=== PATIENT | male | born 1965 | race Caucasian/White ===

== ENCOUNTER 2025-04-11 14:11 | Emergency (ER) | payer SELFPAY ==
[2025-04-11 14:14] VITALS: BP 151/92; PULSE 67; RESP 18; TEMP 36.9; O2SAT 99; BMI 27.3
--- NOTE | 2025-04-11 14:28 | VDLE_ITS ---
Reason For Study Reason For Study: Right leg swelling, hx DVT RIGHT LEFT CFV is compressible, spontaneous, phasic, competent CFV is compressible, spontaneous, phasic, competent, and demonstrates normal augmentation. and demonstrates normal augmentation. FV is partially compressible throughout with bright intraluminal echoes consistent with Chronic DVT. Normal venous flow. PopV is partially compressible with bright intraluminal echoes consistent with Chronic DVT. Normal venous flow. T/P Trunk is partially compressible with bright intraluminal echoes consistent with Chronic DVT. PTV is compressible. RT PerV is compressible. Procedure This is a venous duplex using B-mode, color flow and spectral Doppler. Exam performed portable in ED. A preliminary report was called and/or faxed to Dr. Archer. VL/Venous Duplex US, Unilateral Interpretation Summary Chronic deep vein thrombosis noted in the right femoral vein, popliteal vein, t ibioperoneal trunk vein. Ordering Physician: Ethan Archer Performed By: Thania White RVT
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
[2025-04-11 14:52] LABS: Absolute Lymphocyte Count 1.38 X10^3/uL (0.83-4.51); Absolute Neutrophil Count 6.9 X10^3/uL (2.0-7.7); Basophil# 0.06 X10^3/uL; Basophil% 0.6 % (0-1); Eosinophil# 0.14 X10^3/uL; Eosinophils% 1.5 % (0-5); Hematocrit 37.9 % (40-54); Hemoglobin 11.5 g/dL (13.0-16.5); Lymphocyte # 1.38 X10^3/ul (0.83-4.51); Lymphocyte % 14.7 % (19-41); Mean Corp Hgb Conc 30.3 g/dL (32-36); Mean Corpuscular Hgb 25.6 pg (27.0-32.0); Mean Corpuscular Volume 84.2 fL (80-94); Monocyte# 0.82 X10^3/uL; Monocyte% 8.8 % (0-10); NRBC Flagged by Analyzer 0 % (0-5); Neutrophil # 6.93 X10^3/uL (2.7-7.7); Neutrophil % 74.1 % (47-70); Platelet Count 249 K/mm3 (150-450); RBC Distribution Width CV 16.5 % (11.6-14.6); RBC Distribution Width SD 50.9 fl (35.1-43.9); White Blood Count 9.4 K/mm3 (4.4-11.0)
[2025-04-11 15:10] LABS: Anion Gap 8 (5-15); BUN 19 mg/dL (4-19); BUN/Creat Ratio 21.2 RATIO (10-20); Calcium,Total 9.1 mg/dL (7.6-11.0); Carbon Dioxide 23.4 mmol/L (21.0-32.0); Chloride 106 mmol/L (98-108); Creatinine, Serum 0.88 mg/dL (0.70-1.20); EST Glomerular Filtration Rate 99 (>60); Estimated Creatinine Clearance 90.38 ml/min (50-250); Glucose 108 mg/dL (70-99); Potassium 4.7 mmol/L (3.3-5.1); Sodium Level 138 mmol/L (133-145)
[2025-04-11 16:06] VITALS: BP 118/68; PULSE 80; RESP 16; TEMP 36.6; O2SAT 99
--- NOTE | 2025-04-11 17:09 | CM.ED ---
Social Work SW met with patient, introduced self and explained role with [facility]. Patient stated he currently was living in a camper on a friends property behind [place]. Patient stated he did not know that actual address and did not know the last name of his friend. Patient stated his name is renuka Duncan a short little yasmeen. Patient stated that the camper has a toilet but no running water. Patient also stated that prior to living in the camper, he was at [facility] but got kicked out for staying too long. Patient stated that he has no ID, no wallet, and no insurance. Patient also states he has no phone and does not know if [place] has one. Patient told SW that there was a lady and her that have been helping me out, stating that she brings him food and water and made him an appointment to go to [facility] today. SW asked if patient would stay at one of the shelters if there was an opening, patient stated he was fine where he was and felt safe. SW attempted to give patient resources, however patient declined stating he was illiterate and they would be of no use. SW spoke to patient about asking for a wrapper caser at [facility] and patient stated he would be willing to do that. SW called [facility] to see if they would be willing to find patient with the information we had, [facility] told SW that they would not be able to send a worker out to find patient without an address or a phone number. Marivel from [employer] was contacted to see if she would be able to help patient get Medicaid. Marivel came to Emergency Department to speak with patient. SW contacted [facility], spoke with Irene and made a referral. uLcero Alejandre, INFORMATION OPERATOR, DEICER FINISHER
== END 2025-04-11 16:40 | disposition home or self-care (01) ==
PROVIDERS: Emergency Provider Emergency Medicine; Visit Provider Emergency Medicine
DX: I82.511 Chronic embolism and thrombosis of right femoral vein (principal); I82.531 Chronic embolism and thrombosis of right popliteal vein; I82.541 Chronic embolism and thrombosis of right tibial vein; I10 Essential (primary) hypertension; R60.0 Localized edema; Z59.00 Homelessness unspecified; F17.210 Nicotine dependence, cigarettes, uncomplicated; T69.021A Immersion foot, right foot, initial encounter; T69.022A Immersion foot, left foot, initial encounter; B35.1 Tinea unguium; X58.XXXA Exposure to other specified factors, initial encounter
CPT/HCPCS: 80048; 85025; 93971; 99283